=== PATIENT | male | born 1990 | race Caucasian/White ===

== ENCOUNTER 2019-06-21 22:37 | Emergency (ER) | payer BC, MEDICAID, SELFPAY ==
[~2019-06-21] VITALS: Ht 190.5 cm; Wt 121.4 kg
[2019-06-21 22:44] VITALS: BP 140/77
[2019-06-21] MEDS ORDERED: IBUPROFEN 600 MG TABLET PO ONE (23:00)
[2019-06-21] MEDS ORDERED: LIDOCAINE-MPF 2% ,5ML INFIL ONE (23:00)
[2019-06-21] MEDS ORDERED: LIDOCAINE-MPF 1%, 5ML ONE (23:02)
[2019-06-21] MEDS ORDERED: LIDOCAINE-MPF 2% ,5ML ONE (23:16)
[2019-06-21] MEDS ORDERED: IBUPROFEN 600 MG TABLET ONE (23:16)
--- NOTE | 2019-06-21 23:20 | NUR ---
Patient resting comfortably, spouse at bedside, physician at bedside at the moment.
[2019-06-21] MEDS ORDERED: NEOSPORIN OINT. PKT 1 PACKET ONE (23:32)
== END 2019-06-21 23:54 | disposition home or self-care (01) ==
LOC: ED 23:30
DX: L60.0 Ingrowing nail (principal); F17.200 Nicotine dependence, unspecified, uncomplicated; M79.662 Pain in left lower leg
CPT/HCPCS: 11730; 99283

== ENCOUNTER 2019-07-10 21:17 | Emergency (ER) | payer BC ==
[~2019-07-10] VITALS: Ht 190.5 cm; Wt 122.0 kg
[2019-07-10 21:21] VITALS: BP 148/85
[2019-07-10] MEDS ORDERED: OXYcodone/APAP 5/325MG TABLET ONE (21:53)
[2019-07-10] MEDS ORDERED: IBUPROFEN 200 MG TABLET PO ONE (22:00)
[2019-07-10] MEDS ORDERED: OXYcodone/APAP 5/325MG TABLET PO ONE (22:00)
--- NOTE | 2019-07-10 22:00 | NUR ---
Pt alert and resting on gurney. 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 Pulses intact. Pt ROM decreased d/t pain. Xrays have been done. Pt declined percocet. MD updated. Motrin ordered.
[2019-07-10] MEDS ORDERED: IBUPROFEN 600 MG TABLET ONE (22:21)
--- NOTE | 2019-07-10 22:26 | NUR ---
Pt medicated with motrin. Pt declined offer for ice pack at this time.
--- NOTE | 2019-07-10 23:09 | NUR ---
Pt d/c'd to self care. Sling applied at time of d/c. Pt educated on home care, follow-up, prescription, OTC meds. Pt VU. Pt ambulated out of ER.
== END 2019-07-10 23:12 | disposition home or self-care (01) ==
LOC: ED 23:02
DX: S43.101A Unspecified dislocation of right acromioclavicular joint, initial encounter (principal); F17.200 Nicotine dependence, unspecified, uncomplicated; X58.XXXA Exposure to other specified factors, initial encounter; Y93.89 Activity, other specified; Y92.89 Other specified places as the place of occurrence of the external cause; Y99.8 Other external cause status
CPT/HCPCS: 29105; 99283